=== PATIENT | male | born 1965 | race Caucasian/White ===

== ENCOUNTER 2017-12-16 03:01 | Emergency (ER) | payer MEDICARE, OTHER ==
[~2017-12-16] VITALS: Ht 185.4 cm; Wt 99.8 kg
[2017-12-16] MEDS ORDERED: SOMA350 MG PO (03:43)
[2017-12-16] MEDS ORDERED: HYDR1TAB94 PO (03:43)
[2017-12-16] MEDS ORDERED: Neurontin800 MG PO (03:44)
[2017-12-16] MEDS ORDERED: GABA300 PO (03:45)
== END 2017-12-16 03:54 | disposition home or self-care (01) ==
LOC: ER 03:01
DX: M25.512 Pain in left shoulder (principal); F17.210 Nicotine dependence, cigarettes, uncomplicated; Z79.899 Other long term (current) drug therapy; X50.9XXA Other and unspecified overexertion or strenuous movements or postures, initial encounter
CPT/HCPCS: 99282

== ENCOUNTER 2017-12-18 16:18 | Emergency (ER) | payer MEDICARE, OTHER ==
[~2017-12-18] VITALS: Ht 185.4 cm; Wt 108.4 kg
[~2017-12-18 16:18] MED LIST: GABA300 PO; HYDR1TAB94 PO; Neurontin800 MG PO; SOMA350 MG PO
[2017-12-18] MEDS ORDERED: GABA300 PO (17:01)
[2017-12-18] MEDS ORDERED: CARBAMIDE15 ML UD (18:24)
[2017-12-18] MEDS ORDERED: RISP2 PO (18:24)
[2017-12-18] MEDS ORDERED: BENADRYL25 MG PO (18:30)
[2017-12-19] MEDS ORDERED: RISP1 PO (11:04)
== END 2017-12-18 18:45 | disposition home or self-care (01) ==
LOC: ER 16:18
DX: F20.9 Schizophrenia, unspecified (principal); F17.200 Nicotine dependence, unspecified, uncomplicated; Z88.0 Allergy status to penicillin; Z79.899 Other long term (current) drug therapy
CPT/HCPCS: 99284; Q0163; Q3014

== ENCOUNTER 2017-12-19 10:21 | Emergency (ER) | payer MEDICARE, OTHER ==
[~2017-12-19] VITALS: Ht 185.4 cm; Wt 107.0 kg
[~2017-12-19 10:21] MED LIST changes: +BENADRYL25 MG PO; +CARBAMIDE15 ML UD; +RISP2 PO
[2017-12-19] MEDS ORDERED: RISP1 PO (11:04)
== END 2017-12-19 11:15 | disposition home or self-care (01) ==
LOC: ER 10:21
DX: F31.9 Bipolar disorder, unspecified (principal); F20.9 Schizophrenia, unspecified; F17.210 Nicotine dependence, cigarettes, uncomplicated; Z88.0 Allergy status to penicillin; Z79.899 Other long term (current) drug therapy
CPT/HCPCS: 99282

== ENCOUNTER 2017-12-20 11:17 | Emergency (ER) | payer MEDICARE, OTHER ==
[~2017-12-20] VITALS: Ht 185.4 cm; Wt 106.1 kg
[~2017-12-20 11:17] MED LIST changes: +RISP1 PO
== END 2017-12-20 12:50 | disposition home or self-care (01) ==
LOC: ER 11:17
DX: Z76.0 Encounter for issue of repeat prescription (principal); F32.9 Major depressive disorder, single episode, unspecified; F20.9 Schizophrenia, unspecified; F17.200 Nicotine dependence, unspecified, uncomplicated; Z88.0 Allergy status to penicillin; Z79.899 Other long term (current) drug therapy
CPT/HCPCS: 99282

== ENCOUNTER 2018-01-25 13:07 | Emergency (ER) | payer MEDICARE, OTHER ==
[~2018-01-25] VITALS: Ht 185.4 cm; Wt 127.0 kg
[2018-01-25] MEDS ORDERED: Mucinex1200 MG PO (14:32)
[2018-01-25] MEDS ORDERED: Golytely Packe1 EACH PO (14:32)
[2018-01-25] MEDS ORDERED: Flonase 0.05% N16 GM (14:32)
== END 2018-01-25 14:45 | disposition home or self-care (01) ==
LOC: ER 13:07
DX: J06.9 Acute upper respiratory infection, unspecified (principal); K59.00 Constipation, unspecified; F31.9 Bipolar disorder, unspecified; F20.9 Schizophrenia, unspecified; F17.210 Nicotine dependence, cigarettes, uncomplicated; Z88.0 Allergy status to penicillin; Z79.899 Other long term (current) drug therapy
CPT/HCPCS: 71046; 74019; 99283

== ENCOUNTER 2018-09-25 08:56 | Day surgery (SDC) | payer MEDICARE, OTHER ==
[~2018-09-25] VITALS: Ht 182.9 cm; Wt 136.1 kg
[~2018-09-25 08:56] MED LIST changes: +BUPR150ER PO; +Benztropine Mesy1 MG PO; +Flonase 0.05% N16 GM; +Golytely Packe1 EACH PO; +Mucinex1200 MG PO; +Naltrexone HCl50 MG PO; +RISP3 PO
--- NOTE | 2018-09-25 10:28 | NUR ---
09/25/18 1028 James Gomez NOTIFIED PT OF DELAY D/T PREVIOUS CASE RUNNING LATE. MOM IS AT BEDSIDE. PT AND MOM STATE AN UNDERSTANDING. PT RESTING COMFORTABLY IN PRE OP. DENIES A NEED FOR A WARM BLANKET OR ANYTHING AT THIS TIME. CALL LIGHT WITHIN REACH. WILL CONTINUE TO MONITOR.
== END 2018-09-25 12:55 | disposition home or self-care (01) ==
LOC: ORSCSDS 08:56
PROVIDERS: Internal Medicine Gastroenterology
PROC: 0DBM8ZX Excision of Descending Colon, Via Natural or Artificial Opening Endoscopic, Diagnostic (ICD-10-PCS; principal; 2018-09-25 10:15)
PROC: 0DBN8ZX Excision of Sigmoid Colon, Via Natural or Artificial Opening Endoscopic, Diagnostic (ICD-10-PCS; principal; 2018-09-25 10:15)
PROC: 0DBL8ZX Excision of Transverse Colon, Via Natural or Artificial Opening Endoscopic, Diagnostic (ICD-10-PCS; principal; 2018-09-25 10:15)
PROC: 0DBP8ZX Excision of Rectum, Via Natural or Artificial Opening Endoscopic, Diagnostic (ICD-10-PCS; principal; 2018-09-25 10:15)
PROC: 0DBK8ZX Excision of Ascending Colon, Via Natural or Artificial Opening Endoscopic, Diagnostic (ICD-10-PCS; principal; 2018-09-25 10:15)
DX: Z12.11 Encounter for screening for malignant neoplasm of colon (principal); D12.5 Benign neoplasm of sigmoid colon; D12.2 Benign neoplasm of ascending colon; D12.3 Benign neoplasm of transverse colon; D12.4 Benign neoplasm of descending colon; K62.1 Rectal polyp; K57.30 Diverticulosis of large intestine without perforation or abscess without bleeding; K64.8 Other hemorrhoids; I10 Essential (primary) hypertension; Z79.899 Other long term (current) drug therapy
CPT/HCPCS: 88305; J2250; J7120

== ENCOUNTER 2019-04-10 09:03 | Emergency (ER) | payer MEDICARE, OTHER ==
[~2019-04-10] VITALS: Ht 182.9 cm; Wt 158.3 kg
[2019-04-10] MEDS ORDERED: Voltaren100 GM TOP (11:35)
[2019-04-10] MEDS ORDERED: HYDR1TAB94 PO (11:35)
== END 2019-04-10 11:44 | disposition home or self-care (01) ==
LOC: ER 09:03
DX: M17.0 Bilateral primary osteoarthritis of knee (principal); F31.9 Bipolar disorder, unspecified; F17.210 Nicotine dependence, cigarettes, uncomplicated; F20.9 Schizophrenia, unspecified; Z88.0 Allergy status to penicillin; Z79.899 Other long term (current) drug therapy
CPT/HCPCS: 73564; 99283-25

== ENCOUNTER → 2021-11-27 | Outpatient (CLI) | payer OTHER ==
[~2021-11-27] MED LIST changes: +Voltaren100 GM TOP
[2021-11-27 11:27] LABS: Source, Urine Clean Catch
[2021-11-27 12:23] LABS: Bilirubin, Urine Neg (Neg); Blood, Urine Neg (Neg); Glucose Qualitative, Urine Neg (Neg); Ketones, Urine Neg (Neg); Leukocyte Esterase, Urine Neg (Neg); Nitrite, Urine Neg (Neg); Protein, Urine Neg (Neg); Specific Gravity, Urine 1.025 (1.003-1.022); Urobilinogen, Urine NORM (Normal)
[2021-11-27 12:36] LABS: Appearance, Urine Clear (Clear); Color, Urine Pale Yellow (P-Yellow)
== END ==
LOC: LAB SHORT 11:25 → LAB 11:25
PROVIDERS: Family Medicine
DX: R35.0 Frequency of micturition (principal)
CPT/HCPCS: 81003

== ENCOUNTER → 2023-06-30 | Outpatient (CLI) | payer OTHER | LOC: LAB SHORT 12:14 → LAB 12:14 | DX: R31.9 Hematuria, unspecified (principal) | CPT/HCPCS: 87077; 87086; 87186 ==

== ENCOUNTER 2024-03-07 14:04 | Emergency (ER) | payer OTHER ==
[~2024-03-07] VITALS: Ht 177.8 cm; Wt 183.7 kg
[2024-03-07 14:35] LABS: BASOPHILS ABSOLUTE AUTO 0.09 K/mm3 (0.00-0.23); BASOPHILS PERCENT AUTO 1 % (0-2); EOSINOPHILS ABSOLUTE AUTO 0.31 K/mm3 (0.00-0.68); EOSINOPHILS PERCENT AUTO 3 % (0-6); Hematocrit 44.2 % (37.0-53.0); Hemoglobin 14.2 g/dL (13.5-17.5); IMMATURE GRAN ABSOLUTE AUTO 0.06 K/mm3 (0.00-0.10); IMMATURE GRAN PERCENT AUTO 1 % (0-1); LYMPHOCYTES ABSOLUTE AUTO 2.35 K/mm3 (0.84-5.20); LYMPHOCYTES PERCENT AUTO 23 % (21-46); MONOCYTES ABSOLUTE AUTO 0.62 K/mm3 (0.16-1.47); MONOCYTES PERCENT AUTO 6 % (4-13); Mean Corpuscular HGB 28.1 pg (26.0-34.0); Mean Corpuscular HGB Conc 32.1 g/dL (31.5-36.5); Mean Corpuscular Volume 88 fL (80-100); NEUTROPHILS ABSOLUTE AUTO 7.02 K/mm3 (1.96-9.15); NEUTROPHILS PERCENT AUTO 67 % (41-73); Platelet Count 339 K/mm3 (150-400); RDW Coefficient Variation 14.1 % (11.7-14.2); RDW Standard Deviation 44.6 fL (35.1-46.3); Red Blood Cell Count 5.05 M/mm3 (4.30-5.90); White Blood Cell Count 10.45 K/mm3 (4.00-11.30)
[2024-03-07 14:56] LABS: Albumin, Blood 3.5 g/dL (3.4-5.0); Albumin/Globulin Ratio 0.8 (0.8-1.8); Bilirubin, Total 0.4 mg/dL (0.1-1.0); Creatinine, Blood 0.69 mg/dL (0.60-1.20); Globulin, Blood 4.6 g/dL (2.2-4.0); Total Protein, Blood 8.1 g/dL (6.4-8.2)
[2024-03-07] MEDS ORDERED: NS 1,000 ML IV SCH (17:30)
[2024-03-07] MEDS ORDERED: ARIPIPRAZOLE10 M4 PO (17:33)
[2024-03-07] MEDS ORDERED: QUETIAPINE FUM100 M1 PO (17:42)
[2024-03-07] MEDS ORDERED: METF500 PO (17:42)
[2024-03-07] MEDS ORDERED: TIZA4 PO (17:43)
[2024-03-07] MEDS ORDERED: AMIT25 PO (17:44)
[2024-03-07 19:30] VITALS: BP 149/89
== END 2024-03-07 19:31 | disposition home or self-care (01) ==
LOC: ER 14:04
PROVIDERS: Nurse Practitioner
DX: R55 Syncope and collapse (principal); E86.0 Dehydration; Z88.0 Allergy status to penicillin; Z79.899 Other long term (current) drug therapy; F17.210 Nicotine dependence, cigarettes, uncomplicated
CPT/HCPCS: 71046; 72100; 80053; 84484; 85025; 85379; 93005; 93010; 96365; 99283-25; J7030

== ENCOUNTER 2024-03-12 16:34 | Emergency (ER) | payer OTHER ==
[~2024-03-12] VITALS: Ht 190.5 cm; Wt 93.0 kg
[~2024-03-12 16:34] MED LIST changes: +AMIT25 PO; +ARIPIPRAZOLE10 M4 PO; +METF500 PO; +QUETIAPINE FUM100 M1 PO; +TIZA4 PO
[2024-03-12 16:39] VITALS: BP 151/89
[2024-03-12] MEDS ORDERED: IBUP600 PO (18:30)
[2024-03-12] MEDS ORDERED: Ketorolac Tromethamine 30mg Vial IM ONE (18:30)
== END 2024-03-12 18:41 | disposition home or self-care (01) ==
LOC: ER 16:34
DX: S43.52XA Sprain of left acromioclavicular joint, initial encounter (principal); W19.XXXA Unspecified fall, initial encounter; F17.210 Nicotine dependence, cigarettes, uncomplicated
CPT/HCPCS: 73030; 96372; 99283-25; J1885

== ENCOUNTER 2025-05-20 09:03 | Emergency (ER) | payer OTHER ==
[~2025-05-20] VITALS: Ht 182.9 cm; Wt 181.0 kg
[~2025-05-20 09:03] MED LIST changes: +IBUP600 PO
[2025-05-20] MEDS ORDERED: Dexamethasone Sod Phos 10 MG/ML 1ML VIAL PO ONE (10:10)
[2025-05-20] MEDS ORDERED: Ketorolac Tromethamine 30mg Vial IM ONE (10:10)
[2025-05-20 11:34] LABS: Influenza A, PCR NEGATIVE (NEGATIVE); Influenza B, PCR NEGATIVE (NEGATIVE); Resp Syncytial Virus, PCR NEGATIVE (NEGATIVE); SARS-Cov-2 (COVID-19) PCR, MMC NEGATIVE (NEGATIVE)
[2025-05-20 13:10] VITALS: BP 136/86
== END 2025-05-20 13:17 | disposition home or self-care (01) ==
LOC: ER 09:03
PROVIDERS: Student in an Organized Health Care Education/Training Program
DX: J02.8 Acute pharyngitis due to other specified organisms (principal); F17.210 Nicotine dependence, cigarettes, uncomplicated; Z88.0 Allergy status to penicillin; Z91.013 Allergy to seafood; Z79.84 Long term (current) use of oral hypoglycemic drugs; Z79.899 Other long term (current) drug therapy
CPT/HCPCS: 87081; 87430; 87637; 96372; 99282-25; J1100; J1885